=== PATIENT | male | born 1975 | race Caucasian/White ===

== ENCOUNTER 2019-05-30 12:52 | Emergency (ER) | payer OTHER ==
[~2019-05-30] VITALS: Ht 172.7 cm; Wt 77.1 kg
[2019-05-30 13:04] VITALS: BP 157/104
[2019-05-30] MEDS ORDERED: LISINOPRIL-HCT1 EACH PO (13:06)
== END 2019-05-30 13:57 | disposition home or self-care (01) ==
LOC: M.ERS 12:52
DX: S61.012A Laceration without foreign body of left thumb without damage to nail, initial encounter (principal); S61.211A Laceration without foreign body of left index finger without damage to nail, initial encounter; I10 Essential (primary) hypertension; W26.8XXA Contact with other sharp object(s), not elsewhere classified, initial encounter; Y93.89 Activity, other specified; Y92.098 Other place in other non-institutional residence as the place of occurrence of the external cause; Y99.8 Other external cause status

== ENCOUNTER 2021-03-29 13:42 | Emergency (ER) | payer BC ==
[~2021-03-29] VITALS: Ht 172.7 cm; Wt 77.1 kg
[~2021-03-29 13:42] MED LIST: LISINOPRIL-HCT1 EACH PO
[2021-03-29] MEDS ORDERED: CRESTOR5 MG PO (14:01)
[2021-03-29 15:26] LABS: ABSOLUTE LYMPHOCYTES 1.4 thou/uL (0.8-5.3); ABSOLUTE MONOCYTES 0.6 thou/uL (0.0-1.2); ABSOLUTE NEUTROPHILS 6.4 thou/uL (1.6-8.1); BASOPHILS 0.5 %; EOSINOPHILS 0.2 %; HEMATOCRIT 43.5 % (42.0-52.0); LYMPHOCYTES 16.8 %; MCH 29.4 pg (26.0-34.0); MCHC 34.4 g/dL (28.0-37.0); MCV 85.3 fL (80.0-100.0); MONOCYTES 7.6 %; MPV 6.7 fl. (7.2-11.1); NUCLEATED RBCS 0 /100WBC; PLATELET COUNT* 287 thou/uL (150-400); POLYS 74.9 %; RBC 5.09 mil/uL (4.50-6.00); WBC 8.5 thou/uL (4.0-11.0)
[2021-03-29 15:38] LABS: CALCIUM 8.9 mg/dL (8.5-10.1)
[2021-03-29 15:42] LABS: ALBUMIN 4.5 g/dL (3.4-5.0); MAGNESIUM 2.4 mg/dL (1.8-2.4); TOTAL BILIRUBIN 0.4 mg/dL (<0.1-1.0)
[2021-03-29 18:15] VITALS: BP 133/96
--- NOTE | 2021-03-30 14:33 | EKG ---
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1975 Requested By: Guillermo Mcintosh Order Number: [id number] MD: Massimo Lopez Measurements Intervals [place] Rate: 100 P: 33 MS: 166 QRS: -27 QRSD: 97 T: 60 QT: 338 QTc: 436 Interpretive Statements Sinus tachycardia Probable left atrial enlargement Minor IVCD of the right type Borderline left axis deviation No previous ECG available for comparison Electronically Signed On 03-30-2021 14:32:37 CDT by Massimo Lopez [email or web address] <ELECTRONICALLY SIGNED> By: Massimo Lopez MD, [facility] 03/30/21 1432 1355 1355 Massimo Lopez MD, [facility] /EPI
--- NOTE | 2021-03-30 14:33 | EKG ---
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1975 Requested By: Norbert Parsons Order Number: [id number] MD: Massimo Lopez Measurements Intervals [place] Rate: 78 P: 24 RI: 164 QRS: -14 QRSD: 108 T: 39 QT: 400 QTc: 456 Interpretive Statements Sinus rhythm RSR' in V1 or V2, probably normal variant Compared to ECG 03/29/2021 13:55:56 RSR' in V1 or V2 persists Sinus tachycardia no longer present Electronically Signed On 03-30-2021 14:33:06 CDT by Massimo Lopez [email or web address] <ELECTRONICALLY SIGNED> By: Massimo Lopez MD, [facility] 03/30/21 1433 1543 1543 Massimo Lopez MD, [facility] /EPI
== END 2021-03-29 18:15 | disposition home or self-care (01) ==
LOC: M.ERS 13:42
PROVIDERS: Emergency Medicine Emergency Medical Services
DX: R00.2 Palpitations (principal); R07.89 Other chest pain; R20.2 Paresthesia of skin; R42 Dizziness and giddiness; I10 Essential (primary) hypertension; E78.00 Pure hypercholesterolemia, unspecified